=== PATIENT | female | born 1970 | race Two or more races ===

== ENCOUNTER → 2024-06-08 | Outpatient (CLI) | payer MEDICAID, SELFPAY ==
--- NOTE | 2024-06-08 13:30 | XR_ITS ---
Examination: Breast ultrasound complete, bilateral Date and time of exam: 07/06/2024 at 1404 hours INDICATIONS: Right breast pain with discharge beginning June 05, 2024, history breast cyst aspiration Technique: Real-time grayscale ultrasonographic imaging bilateral breasts, including all 4 quadrants as well as nipple retroareolar and axillary regions. Findings: Sonographic images right breast 12:00 cyst 14 x 11 mm No solid nodules Sonographic images left breast Multiple cysts, the largest in the 12:00 position 8 x 7 mm No solid nodules IMPRESSION: BI-RADS Category 2: Benign findings
== END | disposition home or self-care (01) ==
PROVIDERS: PCP Nurse Practitioner Family; Referring Provider Nurse Practitioner Family; Visit Provider Nurse Practitioner Family
DX: R92.8 Other abnormal and inconclusive findings on diagnostic imaging of breast (principal)
CPT/HCPCS: 76641

== ENCOUNTER 2024-08-10 08:14 | Outpatient (AMB) | payer MEDICAID, SELFPAY ==
[2024-08-10 08:23] VITALS: BP 128/82; PULSE 88; RESP 16; TEMP 35.7; O2SAT 96; BMI 24.0
--- NOTE | 2024-08-10 08:23 | GYNCLNT_ITS ---
Vital Signs 08/10/24 08:23 Height 1.55 m Height Method Stated Weight 57.776 kg Weight Measurement Method Standing Scale BMI 24.0 BP 128/82 Blood Pressure Source Automatic Cuff Blood Pressure Location Left Upper Arm Position Sitting Respiration 16 Pulse 88 Pulse Source Monitor Temp 96.2 F L Temp Source Oral Pulse Oximetry (%) 96 Oxygen Delivery Method Room Air Allergies/Home Meds Allergies & Medications Allergies No Known Allergies Allergy (Verified 08/10/24 08:25) Medication Reconciliation Unobtainable 08/10/24 [History Confirmed 08/10/24] Intake Visit Data Collection New Patient or Established: Established Patient (seen at [facility] within 3 years) Reason for Visit:: Breast Cysts Seen by Clinical Staff ONLY (RN/MA): No Real Estate Management Specialist Required: No Do You Feel Safe at Home: Yes Authorities Contacted: N/A PCP or OBGYN visit in last 3 months: Yes Hx Now: No Are you currently on any form of Control: No Last menstrual period: 08/10/24 Pain Present Currently: No Pain Scale Used: Perez-Acosta/Numerical Pain scale:: 0 Smoking Status Smoking Status: Never smoker 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 1. Little interest or pleasure in doing things: not at all 2. Feeling down, depressed, or hopeless: not at all Total score: 0 PHQ-9 3. Trouble falling or staying asleep, or sleeping too much: Not at all 4. Feeling tired or having little energy: Not at all 5. Poor appetite or overeating: Not at all 6. Feeling bad about yourself - or that you are a failure or have let yourself or your family down: Not at all 7. Trouble concentrating on things, such as reading the newspaper or watching television: Not at all 8. Moving or speaking so slowly that other people could have noticed? - Or the opposite - being so fidgety or restless that you have been moving around a lot more than usual: not at all 9. Thoughts that you would be better off or of hurting yourself in some way: Not at all Total score: 0 If you checked off any problems, how difficult have these problems made it for you to do your work, take care of things at home, or get along with other people?: not difficult at all Source: Developed by Drs. Sahil Moore, Kiya Davis, Phan Wagner and colleagues, with an educational marcel from [employer]. Social History Living Situation History Marital Status: Lives With: Family Housing: House Tobacco History Smoking Status: Never smoker Alcohol History Alcohol Intake: Never Domestic Abuse History Do You Feel Safe at Home: Yes Past Medical History Past Medical History Have you ever been diagnosed with any of the following: History of Present Illness HPI Narrative Chief Complaint Review of abnormal breast ultrasound, right breast discharge for 3 months (one year ago), family history of breast cancer History of Present Illness Marita Cid is a 54-year-old female referred by her PCP for review of an abnormal breast ultrasound. She has a history of right breast discharge and a family history of breast cancer. In August 2023, Marita had a breast ultrasound showing a 5 by 7 mm and a 16 by 12 mm retroareolar cyst at the 9 o'clock position of the right breast, categorized as BI-RADS 2. This was in response to a right breast discharge that had been present for 3 months. A subsequent mammogram was BI-RADS 0 with heterogeneous density and obscured small masses. In December 2023, she underwent a CT-guided breast cyst aspiration and biopsy, but the results are not available. Most recently, in June 2024, another breast sonogram of the right side at the 12 o'clock position revealed a 14 by 11 mm cyst with no solid nodules, categorized as BI-RADS 2. Marita's family history is significant for breast cancer in her half-sister and cysts in another sister. There is no known genetic testing for the BRCA gene in her family. The patient is currently experiencing menstrual periods every other month. She has had one ovary removed and is on thyroid medication. The nipple discharge is ongoing, likely due to fluid-filled cysts communicating with the nipple. Marita reports no worsening of the discharge since her last evaluation. Medical History - Right breast discharge - Right breast cysts, including a 5x7 mm and a 16x12 mm retroareolar cyst at the 9 o'clock position - Heterogeneous breast density - One ovary removed - Thyroid condition requiring medication Surgical History - CT-guided breast cyst aspiration and biopsy in December 2023 - Unilateral oophorectomy (one ovary removed) Medications and Supplements - Thyroid medication Family History - Half-sister: History of breast cancer - Sister: History of breast cysts Social History - Menstrual History: Experiencing periods every other month Review of Systems Genitourinary: Positive for right breast discharge. Endocrine: Positive for irregular menstrual periods (every other month). Review of Systems Review of Systems Systems Reviewed: All systems reviewed, normal except as documented Exam General Limitations: no limitations General Appearance: alert, in no apparent distress, comfortable, cooperative, healthy appearing, well developed and well groomed Head Head exam: atraumatic, normocephalic and normal inspection Chest Chest inspection: Present normal inspection and symmetric chest wall rise Abdominal Abdominal exam: Present soft and normal bowel sounds Psych Psychiatric exam: Present normal affect and normal mood Skin Skin exam: Present warm, dry, intact and normal color Assessment & Plan Diagnosis / Problem List (1) Bilateral breast cysts: Status: Acute Plan Marita Cid, a 54-year-old female, presents for review of an abnormal breast ultrasound with a history of right breast discharge and family history of breast cancer. Abnormal breast ultrasound findings Assessment: Patient has a history of breast cysts identified on ultrasound. In August 2023, a 5x7 mm and a 16x12 mm retroareolar cyst were found at the 9 o'clock position of the right breast (BI-RADS 2). A subsequent mammogram was BI- RADS 0 with heterogeneous density and obscured small masses. In June 2024, another sonogram of the right breast at the 12 o'clock position revealed a 14x11 mm cyst with no solid nodules (BI-RADS 2). 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 Surgical removal is not recommended due to the risk of scarring and pain. Plan: - Follow up in 6 months for reassessment of breast cysts - Send report to primary care provider Right breast discharge Assessment: Patient reports right breast discharge for 3 months prior to initial imaging in August 2023. The discharge is likely due to fluid-filled cysts communicating with the nipple. While not normal, it can be managed conservatively. The discharge is expected to resolve once the patient reaches menopause. Plan: - Monitor breast discharge - Consider hormone suppression therapy if discharge worsens Family history of breast cancer Assessment: Patient has a family history of breast cancer in her half-sister and cysts in another sister. No known genetic testing for BRCA gene in the family. Plan: - Recommend BRCA gene testing - If BRCA positive, implement more frequent screening protocol Perimenopausal state Assessment: Patient reports experiencing menstrual periods every other month, indicating a perimenopausal state. Plan: - Continue to monitor menstrual cycle changes - Educate patient on expected resolution of breast discharge with onset of menopause Office Procedures OB Clinic LOC & Office Proc's Nursing/Assessment Patient Status: Established Patient OB Clinic Nursing Assessment: BP Monitoring, Medication Reconciliation, Update PMH in EMR and Vital Signs OB Clinic Coordination of Care: Consent,records obtained, informed consent, Education Simp Pt/Fam, Results/Orders obtained and Staff clarify orders Established Patient Charge Established Patient Point Assignment: 80 Established Patient Point Charge: EP Level 3 (80-115)
== END 2024-08-10 09:19 | disposition home or self-care (01) ==
LOC: HODSOBC 08:14
PROVIDERS: PCP Nurse Practitioner Family; Referring Provider Nurse Practitioner Family; Supervising Provider Obstetrics & Gynecology; Visit Provider Obstetrics & Gynecology
DX: N60.02 Solitary cyst of left breast (principal); N60.01 Solitary cyst of right breast; N64.52 Nipple discharge; Z78.0 Asymptomatic menopausal state; Z80.3 Family history of malignant neoplasm of breast
CPT/HCPCS: 99213; G0463

== ENCOUNTER 2025-04-05 08:42 | Outpatient (AMB) | payer MEDICAID, SELFPAY ==
[2025-04-05 09:00] VITALS: BP 127/86; PULSE 70; RESP 18; TEMP 36.3; O2SAT 98; BMI 23.5
--- NOTE | 2025-04-05 09:00 | GYNCLNT_ITS ---
Vital Signs 04/05/25 09:00 Height 1.55 m Height Method Stated Weight 56.416 kg Weight Measurement Method Standing Scale BMI 23.5 BP 127/86 H Blood Pressure Source Automatic Cuff Blood Pressure Location Right Upper Arm Position Sitting Respiration 18 Pulse 70 Pulse Source Monitor Temp 97.3 F Temp Source Temporal Artery Scan Pulse Oximetry (%) 98 Oxygen Delivery Method Room Air Allergies/Home Meds Allergies & Medications Allergies No Known Allergies Allergy (Verified 04/05/25 09:02) Medication Reconciliation Unobtainable 08/10/24 [History Confirmed 04/05/25] Intake Visit Data Collection New Patient or Established: Established Patient (seen at [facility] within 3 years) Reason for Visit:: REFERRAL ABNORMAL UTERINE BLEEDING Seen by Clinical Staff ONLY (RN/MA): No Business Operations Manager Required: No Do You Feel Safe at Home: Yes Authorities Contacted: N/A PCP or OBGYN visit in last 3 months: No Hx Now: No Are you currently on any form of Control: No Last menstrual period: 04/05/25 Pain Present Currently: No Pain Scale Used: Perez-Acosta/Numerical Pain scale:: 0 Smoking Status Smoking Status: Never smoker Immunizations Flu Vaccine in the Last 12 Months: No Flu Vaccine Exclusion Criteria: No Exclusion Criteria 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 1. Little interest or pleasure in doing things: not at all 2. Feeling down, depressed, or hopeless: not at all Total score: 0 PHQ-9 3. Trouble falling or staying asleep, or sleeping too much: Not at all 4. Feeling tired or having little energy: Not at all 5. Poor appetite or overeating: Not at all 6. Feeling bad about yourself - or that you are a failure or have let yourself or your family down: Not at all 7. Trouble concentrating on things, such as reading the newspaper or watching television: Not at all 8. Moving or speaking so slowly that other people could have noticed? - Or the opposite - being so fidgety or restless that you have been moving around a lot more than usual: not at all 9. Thoughts that you would be better off or of hurting yourself in some way: Not at all Total score: 0 If you checked off any problems, how difficult have these problems made it for you to do your work, take care of things at home, or get along with other people?: not difficult at all Source: Developed by Drs. Sahil Moore, Kiya Davis, Phan Wagner and colleagues, with an educational marcel from [employer]. Depression screen completed yes Social History Living Situation History Marital Status: Lives With: Family Housing: House Tobacco History Smoking Status: Never smoker Second Hand Smoke Exposure: No Alcohol History Alcohol Intake: Never Domestic Abuse History Do You Feel Safe at Home: Yes History of Present Illness HPI Narrative Marita Cid presents with extended periods with cramping and pain, representing a change from her previous presentation of oligomenorrhea. She was previously seen in August of this year for abnormal breast ultrasound findings with history of right nipple discharge and family history of breast cancer, at which time multiple fibroadenomas were identified and she was recommended for 6-month follow-up. BRCA gene testing was recommended but it is unclear if this testing was completed. She had perimenopausal oligomenorrhea at that time and was advised to track her cycles. She was referred again by her primary care provider, this time reporting extended periods with cramping and pain. The patient is experiencing prolonged menstrual periods accompanied by cramping and pain. She is a 54-year-old female. ROS: Genitourinary: Positive for extended periods with cramping and pain. Diagnostic Test Results and Labs: - Lab results (12-27-2024): Hemoglobin 14.5 g/dL, Alkaline phosphatase 146 (elevated), Total cholesterol 239 (elevated), Hemoglobin A1c 6.0, Triglycerides 477 (elevated), LDL 219 (elevated), TSH 9.8 (elevated), Free T4 0.7 - Breast ultrasound (August 2024): Abnormal findings with multiple fibroadenomas Exam General General Appearance: alert, in no apparent distress and healthy appearing Head Head exam: atraumatic Neck Neck exam: Present normal inspection and trachea midline Chest Chest inspection: Present normal inspection and symmetric chest wall rise External exam: Present normal external exam; Absent tenderness Neuro Neurological exam: Present oriented X3 Psych Psychiatric exam: Present normal affect and normal mood Office Procedures OBC Clinic LOC & Office Proc's Nursing/Assessment Patient Status: Established Patient OB Clinic Nursing Assessment: Medication Reconciliation, Update PMH in EMR and Vital Signs OB Clinic Coordination of Care: Complex Care and Chronic Disease 1-5, Education Complex Pt/Fam, Consent,records obtained, informed consent, Lab and Imaging orders, Results/Orders obtained and Staff clarify orders Established Patient Charge Established Patient Point Assignment: 110 Established Patient Point Charge: EP Level 3 (80-115) Assessment & Plan Diagnosis / Problem List (1) Abnormal perimenopausal bleeding: Status: Acute (2) Bilateral breast cysts: Status: Acute Plan Abnormal Uterine Bleeding: - Extended periods accompanied by cramping and pain in 54-year-old female. - Recent laboratory results from December 27, 2024 show hemoglobin of 14.5, indicating no current anemia despite bleeding pattern. - Bleeding pattern consistent with perimenopausal changes, though extended duration and associated pain warrant further evaluation. Plan: - Discussed transvaginal ultrasound. - Discussed endometrial biopsy and ultrasound. - Discussed safety precautions. - Care counts twice daily. Hypothyroidism: - Laboratory results show elevated TSH at 9.8 with free T4 at 0.7, indicating hypothyroidism. - May be contributing to menstrual irregularities and metabolic abnormalities. Dyslipidemia: - Recent labs demonstrate elevated total cholesterol at 239, LDL at 219, and significantly elevated triglycerides at 477. - Mixed dyslipidemia requiring management. Prediabetes: - A1c of 6.0 indicates prediabetes. - Requires monitoring and lifestyle interventions to prevent progression to diabetes mellitus. Elevated Alkaline Phosphatase: - Laboratory results show elevated alkaline phosphatase at 146. - May indicate liver or bone pathology and requires further evaluation to determine etiology.
== END 2025-04-05 09:41 | disposition home or self-care (01) ==
LOC: HODSOBC 08:42
PROVIDERS: PCP Nurse Practitioner Family; Referring Provider Nurse Practitioner Family; Supervising Provider Obstetrics & Gynecology; Visit Provider Obstetrics & Gynecology
DX: N92.4 Excessive bleeding in the premenopausal period (principal); N60.02 Solitary cyst of left breast; N60.01 Solitary cyst of right breast; E03.9 Hypothyroidism, unspecified; E78.5 Hyperlipidemia, unspecified; R74.8 Abnormal levels of other serum enzymes; R73.03 Prediabetes
CPT/HCPCS: 99213; G0463

== ENCOUNTER → 2025-04-27 | Outpatient (CLI) | payer MEDICAID, SELFPAY ==
--- NOTE | 2025-04-27 13:30 | XR_ITS ---
Examination: Breast ultrasound complete, bilateral Date and time of exam: April 27, 2025, 1401 hours INDICATIONS: Right breast discharge 25 years, family history breast cancer, right breast sonogram June 08, 2024 multiple cysts in both breasts Technique: Real-time grayscale ultrasonographic imaging bilateral breasts, including all 4 quadrants as well as nipple retroareolar and axillary regions. Findings: Sonographic images right breast 12:00 cyst 4 x 3 mm No solid nodules Sonographic images left breast Multiple benign cysts, the largest in the 12 o'clock position 9 x 10 mm No solid nodules IMPRESSION: BI-RADS Category 2: Benign findings
== END | disposition home or self-care (01) ==
LOC: CDIM 13:26
PROVIDERS: PCP Nurse Practitioner Family; Referring Provider Nurse Practitioner Family; Visit Provider Nurse Practitioner Family
DX: N60.01 Solitary cyst of right breast (principal); N60.02 Solitary cyst of left breast
CPT/HCPCS: 76641